=== PATIENT | female | born 1995 | race Caucasian/White ===

== ENCOUNTER → 2021-02-13 16:33 | Outpatient (BNVA) | payer OTHER, SELFPAY | PROVIDERS: Family Provider Family Medicine; Visit Provider Registered Nurse Neonatal Intensive Care | DX: J02.9 Acute pharyngitis, unspecified (principal); J02.0 Streptococcal pharyngitis | CPT/HCPCS: 87880 ==

== ENCOUNTER 2021-06-03 12:50 | Emergency (ER) | payer BC, MEDICAID, SELFPAY ==
[2021-06-03 12:52] VITALS: BP 119/77; PULSE 103; RESP 16; TEMP 36.9; O2SAT 98; BMI 33.9
--- NOTE | 2021-06-03 13:15 | ECG_ITS ---
[facility] Test Date: 2021-06-03 Pat Name: Ana Tay Department: Room: Gender: Female Tunnel Inspector: : 1995 Requested By: Roddy Negrete Order Number: [id number] Martinez MD: Ev Blackman M.D. Measurements Intervals [place] Rate: 74 P: 28 TX: 146 QRS: 33 QRSD: 95 T: 34 QT: 380 QTc: 422 Interpretive Statements SINUS RHYTHM No previous ECG available for comparison Electronically Signed On 06-03-2021 19:24:02 CDT by Ev Blackman M.D. [email or web address]
--- NOTE | 2021-06-03 13:29 | ED_ITS ---
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 The incident was witnessed by coworkers today. denies any fall or injury. After the seizure, patient has headache and neck pain. En route by rescue, the patient had a fingerstick glucose of wnl and was back to baseline. HDS without any signs of focal neurological deficits. On arrival, the patient is AAOx3, GCS of 15 and answering all questions. The patient denies any associated chest pain, shortness of breath, palpitations, or any focal pain in the arms and legs. Last time breakthrough seizure occurred in January due to medication non-compliance. Since then, patient reports taking her medicine compliantly. Patient denies new vaginal cramps, vaginal discharge, hematuria, vaginal bleeding, or any urinary symptoms. Onset: 1 hr ago Duration: x1 episode Location: home Severity: moderate Review of Systems Narrative: Constitutional: No fever, no chills. HEENT: No vision changes, +neck pain CV: No chest pain, no palpitations PULM: No productive cough, no dyspnea. GI: No abdominal pain, no N/V/D. : No Dysuria MSKEL: No muscle pain SKIN: No new rashes, no lesions. NEURO: +headache, no focal weakness. + 1 episode of seizure HEME: No visible bruises PSYCH: Normal mood PFSH ED PFSH: Medical History (Updated 06/03/21 @ 13:27 by Roddy Negrete MD) Psychiatric care Social History Smoking and tobacco status: never smoked Second hand smoke exposure: No Smoking risk assessment/counseling performed?: No Current gender identity: Female Female Reproductive History: Date of last menstrual period: 03/03/21 Physical Exam Narrative: EXAM NARRATIVE: Head: Atraumatic Eyes: PERRL, conjunctiva without injection, eyes tracking ENT: Mucous membrane moist NECK: Supple without lymphadenopathy LUNGS: LCTAB CV: RRR ABDOMEN: Soft, nontender in all quadrants, no guarding or rebound tenderness, no CVA or flank tenderness bilaterally EXTREMITY: Normal ROM SKIN: No rash or erythema NEURO: CN II-XII tested and intact. Sensation intact to sharp/dull differentiation in all extremities. Motor: Normal tone and bulk. No abnormal movements appreciated. No pronator drift. Strength tested and 5/5 in bilateral wrist flexion/extension, elbow flexion/extension, shoulder abduction, straight leg raise, knee flexion/extension, ankle dorsiflexion/plantarflexion. Patient ambulates with a steady gait. Coordination: Finger to nose and heel to ruiz testing intact bilaterally. Reflexes intact in the ankles, knees, and elbows bilaterally PSYCH: Cooperative mood and affect Course Vital Signs: Vital signs: Vital Signs Temperature 98.4 F 06/03/21 12:52 Pulse Rate 80 06/03/21 15:30 Respiratory Rate 16 06/03/21 15:30 Blood Pressure 131/82 06/03/21 15:30 Pulse Oximetry 97 06/03/21 15:30 MDM - General Adult MDM Narrative: Medical decision making narrative: [25]yo patient at 11 weeks, epilepsy on keppra and lamotrigene BIBA after an episode of seizure with unknown duration which occurred 1 hr ago. Back to baseline on arrival, AAOX3 with non-focal neuro exam. HDS. Exam revealed no focal trauma/deformity/bruises.The episode of seizure was witnessed and without any trauma/injury to the head. No immunosuppression hx and without preceding fever. No history of alcohol abuse or suspicion for toxin ingestion. Hx of prior seizure likely breakthrough seizure in the setting of medication change/non- compliance. H No lips/tongue lacerations. No visible bowel/bladder incontinence Airway protected. No drooling. Sats > 95%. Unlikely to be stroke, neurogenic syncope, acute delirium, intracranial tumor/mass, intracranial bleed, SAH/subdural hematoma/epidural hematoma, meningitis, or intracranial abscess, or from alcohol withdrawal. Workup: CBC, CMP, Magnesium, EKG, lamotrigene level, UA ED Interventions: 1g of keppra, PO challenge, serial reassessment EKG: No e/o STEMI. No evidence of Brugada?s sign, delta wave, epsilon wave, significantly prolonged QTc, or malignant arrhythmia. Lab findings: Electrolytes including K and Mg wnl. [2:34pm] On reassessment, patient back to baseline. In the ED, the patient received 1g of keppra. No other witnessed episodes of seizure while the patient was observed in the ED. Repeat neuro exam is non-focal. Patient tolerated PO in the ED and was able to ambulate without difficulties. Lab is consistent with seizure given anion gap acidosis. Unlikely to be alternative causes of seizures since the patient has no hx of immunosuppression, no recent fevers, no recent abx/CENTRAL STORES ATTENDANT shunt, no recent toxic exposure, no unilateral or focal weakness, or trauma. Patient reassures me that she will follow-up with her neurologist and her OB provider [place]. Patient declined to be seen by our neurologist here. Patient denied XR evaluation today citing . Disposition: Discharge. Patient is given instruction for follow-up with PCP and Neurology in the next 24-48 hours. Given seizure precautions including no driving, swimming, or bathing until the patient is fully evaluated by specialists. Lab Data: Labs: Lab Results 06/03/21 06/03/21 06/03/21 12:55 12:55 15:10 WBC 11.6 10^3/uL H 10 ^3/uL (4.0-10.0) RBC 4.92 10^6/uL 10^6 /uL (4.1-5.3) Hgb 14.8 g/dL g/dL (11.5-15.3) Hct 45.5 % % (37.0-47.0) MCV 92.5 fl fl (81-99) MCH 30.1 pg pg (28.0-34.0) MCHC 32.5 g/dL g/dL (30.0-36.0) RDW 12.2 % % (12.1-15.1) Plt Count 264 10^3/cmm 10^3 /cmm (130-400) MPV 10.5 fL H fL (7.4-10.4) Neut % (Auto) 73.5 % % Lymph % (Auto) 21.7 % % [place] % (Auto) 4.2 % % Eos % (Auto) 0.0 % % Baso % (Auto) 0.2 % % Neut # (Auto) 8.54 10^3/uL H 10 ^3/uL (1.8-7.7) Lymph # (Auto) 2.5 10^3/uL 10^3/ uL (0.8-4.8) [place] # (Auto) 0.5 10^3/uL 10^3/ uL (0.2-0.9) Eos # (Auto) 0.0 10^3/uL 10^3/ uL (0.0-0.8) Baso # (Auto) 0.0 10^3/uL 10^3/ uL (0.0-0.1) Nucleated RBC % (a uto) 0 % % Nucleated RBCs # 0.0 /100WBC /100W BC Sodium 136 mmol/L mmol/L (136-145) Potassium 3.9 mmol/L mmol/L (3.5-5.1) Chloride 99 mmol/L mmol/L (98-107) Carbon Dioxide 11 mmol/L L mmol/ L (22-29) Anion Gap 29.9 H (5-19) BUN 6 mg/dL mg/dL (6-20) Creatinine 0.6 mg/dL mg/dL (0.5-0.9) GFR Calculation 122.8 mL/min mL/m in (90-130) Glucose 89 mg/dL mg/dL (65-115) Calculated Osmolal ity 279 mOsm/kg L mOs m/kg (285-295) Calcium 9.7 mg/dL mg/dL (8.5-10.5) Total Bilirubin 0.3 mg/dL mg/dL (0.15-1.2) AST 16 U/L U/L (0-32) ALT 17 U/L U/L (0-33) Alkaline Phosphata se 60 IU/L IU/L (35-105) Total Protein 7.5 g/dL g/dL (6.6-8.7) Albumin 4.1 g/dL g/dL (3.5-5.2) Globulin 3.4 g/dL g/dL (1.3-4.6) Lipase 19 U/L U/L (13-60) Urine Color Yellow (Yellow) Urine Appearance Cloudy (CLEAR) Urine pH 5 (5-7) Ur Specific Gravit y 1.020 (1.005-1.030) Urine Protein Neg (Negative) Urine Glucose (UA) Norm (Normal) Urine Ketones 2+ H (Negative) Urine Blood Neg (Negative) Urine Nitrate Negative (Negative) Urine Bilirubin Neg (Negative) Urine Urobilinogen Norm mg/dL mg/dL (Negative) Ur Leukocyte Alethea ase Negative (Negative) Urine RBC Rare /hpf /hpf (0-2) Urine WBC Rare /hpf /hpf (0-5) Ur Squamous Epith Cells Rare /hpf /hpf (0-5) Amorphous Sediment Not Reportable Urine Bacteria 2+ /hpf H /hpf (NONE) Urine Mucus 1+ /hpf /hpf Discharge Plan Discharge Patient Disposition: Home Clinical Impression: Seizure Condition: Stable Prescriptions: No Action lamotrigine [Lamictal] 200 mg tablet 200 mg PO BID RF: 0 levetiracetam 750 mg tablet extended release 24 hr 1,500 mg PO QAM RF: 0 Multivitamins 28 mg iron- 800 mcg Tablet 1 tab PO DAILY RF: 0 Prozac 20 mg capsule 20 mg PO QAM RF: 0 Discharge Orders: Discharge ED (Routine); Ordered 06/03/21 Ordered By: Roddy Negrete Discharge Diet: Advance as tolerated Discharge Activity: Resume usual activity Patient Instructions: Seizures Activity Restrictions/Additional Instructions: Please follow-up with your doctor in [place] for further evaluation of your seizure. Please do not drive, swim, bathe on your own without supervision. Come back to the emergency room you have another break-up through episode of seizure. Stand Alone Forms: Work/School Release Coding Level of Care Code ED Test And Turn Up Technician for Ehsan Sherwood
[2021-06-03 13:48] LABS: Basophils % 0.2 %; Hematocrit 45.5 % (37.0-47.0); Hemoglobin 14.8 g/dL (11.5-15.3); Lymphocytes # 2.5 10^3/uL (0.8-4.8); Lymphocytes % 21.7 %; Mean Corpuscular HGB Conc 32.5 g/dL (30.0-36.0); Mean Corpuscular Hemoglobin 30.1 pg (28.0-34.0); Mean Corpuscular Volume 92.5 fl (81-99); Mean Platelet Volume 10.5 fL (7.4-10.4); Monocytes # 0.5 10^3/uL (0.2-0.9); Monocytes % 4.2 %; Neutrophils # 8.54 10^3/uL (1.8-7.7); Neutrophils % 73.5 %; Nucleated Red Blood Cells % 0 %; Platelet Count 264 10^3/cmm (130-400); Red Blood Count 4.92 10^6/uL (4.1-5.3); Red Cell Distribution Width 12.2 % (12.1-15.1); White Blood Count 11.6 10^3/uL (4.0-10.0)
[2021-06-03 13:50] VITALS: PULSE 83; PULSE 90; RESP 15; O2SAT 98
[2021-06-03 13:52] LABS: Alanine Aminotransferase 17 U/L (0-33); Albumin Level 4.1 g/dL (3.5-5.2); Alkaline Phosphatase 60 IU/L (35-105); Anion Gap 29.9 (5-19); Aspartate Amino Transferase 16 U/L (0-32); Blood Urea Nitrogen 6 mg/dL (6-20); Calcium 9.7 mg/dL (8.5-10.5); Carbon Dioxide 11 mmol/L (22-29); Chloride 99 mmol/L (98-107); Globulin 3.4 g/dL (1.3-4.6); Glomerular Filtration Rate 122.8 mL/min (90-130); Glucose 89 mg/dL (65-115); Lipase 19 U/L (13-60); Osmolality Calculated 279 mOsm/kg (285-295); Potassium 3.9 mmol/L (3.5-5.1); Sodium 136 mmol/L (136-145); Total Bilirubin 0.3 mg/dL (0.15-1.2); Total Protein 7.5 g/dL (6.6-8.7)
[2021-06-03] MEDS: sodium chloride 0.9% 1,000 ML 999 ML IV (14:13)
--- NOTE | 2021-06-03 14:14 | PC.NURSE ---
pt amb to bathroom with a steady gait unassisted to attempt to provide urine specimen. upon returning she stated that she did urinate but did not remember to catch it in the cup. pt is a&ox4. pt educated on procedure of collection again she verbalizes understanding.
[2021-06-03 14:20] VITALS: PULSE 75; RESP 18; O2SAT 99
--- NOTE | 2021-06-03 14:20 | PC.NURSE ---
while at bedside pt is in nad. pt denies any further needs.
[2021-06-03 14:30] VITALS: BP 120/65; PULSE 77; RESP 21; O2SAT 97
--- NOTE | 2021-06-03 14:53 | PC.NURSE ---
pt connected to continuous spo2, nibp, and cm per protocol.
[2021-06-03 15:30] VITALS: BP 131/82; PULSE 80; RESP 16; O2SAT 97
--- NOTE | 2021-06-03 15:56 | PC.NURSE ---
offered pt to receive the rest of ns approx 600 ml pt refused.
[2021-06-03 16:11] LABS: Add Urine Microscopic? YES; Bilirubin Urine Neg (Negative); Blood Urine Neg (Negative); Glucose Urine UA Norm (Normal); Ketones Urine 2+ (Negative); Leukocyte Esterase Urine Negative (Negative); Nitrate Urine Negative (Negative); Protein Urine Neg (Negative); Urine Appearance Cloudy (CLEAR); Urine Color Yellow (Yellow); Urobilinogen Urine Norm (Negative); pH Urine 5 (5-7)
[2021-06-03 16:12] LABS: Bacteria Urine 2+ /hpf; Mucus Urine 1+ /hpf; RBC Urine RARE /hpf (0-2); Squamous Epithelial Cell Urine RARE /hpf (0-5); WBC Urine RARE /hpf (0-5)
[2021-06-07 16:37] LABS: Lamotrigine (Lamictal) Level 2.2 mcg/mL (4.0-18.0)
== END 2021-06-03 15:54 | disposition home or self-care (01) ==
PROVIDERS: Emergency Provider Emergency Medicine
DX: R56.9 Unspecified convulsions (principal)
CPT/HCPCS: 80053; 80175; 81001; 83690; 85025; 93005; 96361; 96374; 99284; J1953; J7030

== ENCOUNTER 2021-07-24 16:54 | Outpatient (CLI) | payer BC, MEDICAID, SELFPAY ==
[2021-07-29 10:11] LABS: Levetiracetam Keppra 10.5 mcg/mL
[2021-07-29 14:02] LABS: Lamotrigine (Lamictal) Level 4.7 mcg/mL (4.0-18.0)
== END 2021-07-24 16:55 | disposition home or self-care (01) ==
LOC: LAB 16:58
PROVIDERS: Visit Provider Psychiatry & Neurology Neurology
DX: G40.309 Generalized idiopathic epilepsy and epileptic syndromes, not intractable, without status epilepticus (principal)
CPT/HCPCS: 36415; 80175; 80177

== ENCOUNTER → 2021-10-18 12:43 | Outpatient (BNVA) | payer BC, SELFPAY | PROVIDERS: Visit Provider Psychiatry & Neurology Psychiatry | DX: F41.9 Anxiety disorder, unspecified (principal); J02.0 Streptococcal pharyngitis | CPT/HCPCS: 99213 ==

== ENCOUNTER 2021-12-05 20:01 | Outpatient (CLI) | payer BC, MEDICAID, SELFPAY ==
[2021-12-05] VITALS (49 sets, daily range): BP systolic 111–161; BP diastolic 57–87; PULSE 88–129; RESP 14; O2SAT 88–99; BMI 36.6
[2021-12-05 20:55] LABS: Basophils % 0.2 %; Hematocrit 36.1 % (37.0-47.0); Hemoglobin 12.2 g/dL (11.5-15.3); Lymphocytes # 1.9 10^3/uL (0.8-4.8); Lymphocytes % 15.9 %; Mean Corpuscular HGB Conc 33.8 g/dL (30.0-36.0); Mean Corpuscular Hemoglobin 29.2 pg (28.0-34.0); Mean Corpuscular Volume 86.4 fl (81-99); Mean Platelet Volume 11.1 fL (7.4-10.4); Monocytes # 0.8 10^3/uL (0.2-0.9); Monocytes % 7.1 %; Neutrophils # 8.84 10^3/uL (1.8-7.7); Neutrophils % 75.9 %; Nucleated Red Blood Cells % 0 %; Platelet Count 251 10^3/cmm (130-400); Red Blood Count 4.18 10^6/uL (4.1-5.3); Red Cell Distribution Width 12.1 % (12.1-15.1); White Blood Count 11.6 10^3/uL (4.0-10.0)
--- NOTE | 2021-12-05 20:58 | P.HP_ITS ---
Providers/Chief Complaint Admitting Physician: Tasneem Catalan MD On-call provider since [facility] SHEARING MACHINE TENDER on-call provider (Dr. Serna) declined the patient. Chief Complaint: Seizure History of Present Illness Ana Tay is a 26 year old female G2, P1 at 37 weeks 3 days gestation who presented via EMS to labor and delivery for seizure at home. She does have a history of seizure disorder with her last known seizure about 6 months ago. She was not given any medications by EMS and she was not seizing upon presentation to the hospital. The patient is still postictal and cannot recall any events from today. Her significant other is with her but he was not present at the time. He was called by her father who was home with her during the seizure. She follows with an OB Dr. Singletary in [place] and also with a neurologist in [place]. She does recall that they increased her medication after her last seizure 6 months ago. Her blood pressure on presentation was 120/76. EMS reported BP's in the 130's (we do not have record, simply verbal report). Review of Systems General: Reports: Other (Patient is postictal so her short-term memory is c ompromised, but she denie) Const: Denies: fever(s) Eyes: Denies: eye redness or seeing flashes ENMT: Denies: throat pain, ear or mastoid pain or nasal congestion Card: Denies: chest pain or palpitations Resp: Denies: dyspnea or productive cough GI: Denies: abdominal pain, GI cramping or change in bowel habits : Denies: flank pain or dysuria Musc: Denies: joint pain or joint swelling Skin/Breast: Denies: rash Neuro: Reports: confusion and seizure-like activity Psych: Denies: mood swings Endo: Reports: polydipsia Jaret/Lymph: Denies: easy bruising or easy bleeding All/Imm: Denies: urticaria or throat swelling Medications/Allergies Home Medications Medication Instructions Recorded Confirmed Last Taken Type vit no.95-ferrous 1 tab PO DAILY 06/03/21 12/05/21 12/05/21 History fumarate 28 mg-folic acid 800 mcg tablet ( Multivitamins) fluoxetine 20 mg capsule (Prozac) 20 mg PO QAM #30 cap 03/04/22 04/21/22 04/21/22 Rx lamotrigine 200 mg tablet 350 mg PO BID tab 10/18/21 12/05/21 12/05/21 History (Lamictal) levetiracetam 750 mg 1,500 mg PO BID tab 10/18/21 12/05/21 12/05/21 History tablet,extended release 24 hr (Keppra XR) Allergies Allergy/AdvReac Type Severity Reaction Status Date / Time adhesive tape Allergy Severe breaks out Verified 12/05/21 21:16 latex Allergy Severe breaks out Verified 12/05/21 21:16 in hives PFSH Acute PFSH: Medical History (Updated 12/05/21 @ 21:14 by Tasneem Catalan MD) Psychiatric care Social History Smoking and tobacco status: never smoked Second hand smoke exposure: No Smoking risk assessment/counseling performed?: No Current gender identity: Female Female Reproductive History: Date of last menstrual period: 03/03/21 Vitals/I&O/Wt Last Vital Signs Pulse 101 H 12/05/21 20:55 BP 126/78 12/05/21 20:47 Pulse Ox 96 12/05/21 20:55 Physical Exam HENMT: HEAD & SCALP: normal to inspection Eye: COMMON NORMALS: Equal, round and reactive pupils present and EOMs intact bilaterally Chest: CHEST: Yes Symmetrical chest wall rise Resp: AUSCULTATION: clear to auscultation bilaterally, no rhonchi and no wheezes Cardio: RATE: regular rate RHYTHM: regular rhythm HEART SOUNDS: no murmurs GI: INSPECTION: Yes gravid abdomen PALPATION: Yes Soft to palpation and No Tenderness to palpation present (GI) Extremity: NARRATIVE EXTREMITY EXAM: No calf tenderness Skin: GENERAL SKIN EXAM: no pallor Data : 12/05/21 20:35 12/05/21 20:35 A&P Assessment and plan (1) with 37 weeks completed gestation: heart tones were initially tachycardic upon presentation but the infant has settled down nicely with a baseline around 150s, good accelerations, moderate variability, and no decelerations. There is uterine irritability but the patient denies feeling any contractions. Status: Acute (2) 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: I do suspect this is related to her seizure disorder and not eclampsia. Her blood pressures have been very good. Her most elevated is 129/81. We are still awaiting [facility] labs. Her seizure spontaneously resolved as EMS reported not giving her any medications -she seemed to be postictal when they arrived on scene. We do have Ativan and magnesium immediately available. Further plans will be dependent upon the patient's hospital course. update: The patient's labs resulted. Her ASt was 34, just 2 points above normal, with a normal ALT. Platelets are good, trace protein in the urine. Urine pro-Cr ratio is borderline at 0.32. Uric acid 6.1. Unfortunately Lamictal and Keppra levels are a send out lab that will take 2 to 4 days to result so we will not be doing these. I spoke with Dr. Dalton the on-call physician for [place], Dr. Singletary. And he agrees that this seems to be due to her epilepsy. She does have an OB appointment jas jennifer in [place] and she will go ahead and keep that. I advised her to notify her neurologist and possibly have her medication levels checked there tomorrow. She is feeling pretty good , denies any GARRISON or scotomata, she has no RUQ tenderness. heart tones are now 140s with moderate variability good accelerations, lots of movement. We are picking up some contractions every 2 to 6 minutes however the patient is not feeling them. Additionally she has made no cervical change from the time of admission. Current blood pressure 111/72. Status: Acute (3) Anxiety disorder, unspecified: On fluoxetine Status: Acute Attestations Medical Necessity Statement*: Seizure during , need to rule out eclampsia. Coding Level of Care Code Acute Urban Planner for [facility] Fwd Exam Detailed Diagnoses with 37 weeks completed gestation Z3A.37 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 O99.353; G40.909 Anxiety disorder, unspecified F41.9
[2021-12-05 21:10] LABS: Add Urine Microscopic? YES; Bacteria Urine TRACE /hpf; Bilirubin Urine Neg (Negative); Blood Urine Neg (Negative); Glucose Urine UA Norm (Normal); Ketones Urine 1+ (Negative); Leukocyte Esterase Urine Negative (Negative); Mucus Urine 3+ /hpf; Nitrate Urine Negative (Negative); Protein Urine Trace (Negative); RBC Urine 0-4 /hpf (0-2); Squamous Epithelial Cell Urine 0-4 /hpf (0-5); Urine Appearance Clear (CLEAR); Urine Color Yellow (Yellow); Urobilinogen Urine Norm (Negative); WBC Urine 0-4 /hpf (0-5); pH Urine 6 (5-7)
[2021-12-05 21:11] LABS: Add Urine Culture? No
[2021-12-05 21:12] LABS: Alanine Aminotransferase 7 U/L (0-33); Albumin Level 3.6 g/dL (3.5-5.2); Alkaline Phosphatase 155 IU/L (35-105); Anion Gap 20.6 (5-19); Aspartate Amino Transferase 34 U/L (0-32); Blood Urea Nitrogen 8 mg/dL (6-20); Calcium 9.1 mg/dL (8.5-10.5); Carbon Dioxide 18 mmol/L (22-29); Chloride 104 mmol/L (98-107); Globulin 2.7 g/dL (1.3-4.6); Glomerular Filtration Rate 150.3 mL/min (90-130); Glucose 84 mg/dL (65-115); Osmolality Calculated 284 mOsm/kg (285-295); Potassium 4.6 mmol/L (3.5-5.1); Sodium 138 mmol/L (136-145); Total Bilirubin 0.3 mg/dL (0.15-1.2); Total Protein 6.3 g/dL (6.6-8.7); Uric Acid 6.1 mg/dL (2.4-5.7)
[2021-12-05 21:17] LABS: Urine Creatinine 155 mg/dL (28-217)
[2021-12-05 21:19] LABS: UPRO/UCREAT Ratio 0.32 mg/mg CR; Urine Protein Random 50 mg/dL
--- NOTE | 2021-12-05 22:14 | PM.DCS ---
Discharge Providers Date of Discharge: December 05, 2021 Attending Provider at Admission: Tasneem Catalan MD Attending Provider at Discharge: Tasneem Catalan MD Diagnoses at Discharge Discharge Diagnosis (1) with 37 weeks completed gestation: Status: Acute (2) 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: Status: Acute (3) Anxiety disorder, unspecified: Status: Acute Reason for Visit Reason for Visit: Seizure Hospital Course Hospital Course Please see patient's H&P for all details. This was a very short stay, less than 4 hours. Discharge Data Studies Completed and Pending Laboratory Results WBC 11.6 10^3/uL (4.0-10.0) H 12/05/21 20:35 RBC 4.18 10^6/uL (4.1-5.3) 12/05/21 20:35 Hgb 12.2 g/dL (11.5-15.3) 12/05/21 20:35 Hct 36.1 % (37.0-47.0) L 12/05/21 20:35 MCV 86.4 fl (81-99) 12/05/21 20:35 MCH 29.2 pg (28.0-34.0) 12/05/21 20:35 MCHC 33.8 g/dL (30.0-36.0) 12/05/21 20:35 RDW 12.1 % (12.1-15.1) 12/05/21 20:35 Plt Count 251 10^3/cmm (130-400) 12/05/21 20:35 MPV 11.1 fL (7.4-10.4) H 12/05/21 20:35 Neut % (Auto) 75.9 % 12/05/21 20:35 Lymph % (Auto) 15.9 % 12/05/21 20:35 [place] % (Auto) 7.1 % 12/05/21 20:35 Eos % (Auto) 0.0 % 12/05/21 20:35 Baso % (Auto) 0.2 % 12/05/21 20:35 Neut # (Auto) 8.84 10^3/uL (1.8-7.7) H 12/05/21 20:35 Lymph # (Auto) 1.9 10^3/uL (0.8-4.8) 12/05/21 20:35 [place] # (Auto) 0.8 10^3/uL (0.2-0.9) 12/05/21 20:35 Eos # (Auto) 0.0 10^3/uL (0.0-0.8) 12/05/21 20:35 Baso # (Auto) 0.0 10^3/uL (0.0-0.1) 12/05/21 20:35 Nucleated RBC % (auto) 0 % 12/05/21 20:35 Nucleated RBCs # 0.0 /100WBC 12/05/21 20:35 Sodium 138 mmol/L (136-145) 12/05/21 20:35 Potassium 4.6 mmol/L (3.5-5.1) 12/05/21 20:35 Chloride 104 mmol/L (98-107) 12/05/21 20:35 Carbon Dioxide 18 mmol/L (22-29) L 12/05/21 20:35 Anion Gap 20.6 (5-19) H 12/05/21 20:35 BUN 8 mg/dL (6-20) 12/05/21 20:35 Creatinine 0.5 mg/dL (0.5-0.9) 12/05/21 20:35 GFR Calculation 150.3 mL/min (90-130) H 12/05/21 20:35 Glucose 84 mg/dL (65-115) 12/05/21 20:35 Calculated Osmolality 284 mOsm/kg (285-295) L 12/05/21 20:35 Uric Acid 6.1 mg/dL (2.4-5.7) H 12/05/21 20:35 Calcium 9.1 mg/dL (8.5-10.5) 12/05/21 20:35 Total Bilirubin 0.3 mg/dL (0.15-1.2) 12/05/21 20:35 AST 34 U/L (0-32) H 12/05/21 20:35 ALT 7 U/L (0-33) 12/05/21 20:35 Alkaline Phosphatase 155 IU/L (35-105) H 12/05/21 20:35 Total Protein 6.3 g/dL (6.6-8.7) L 12/05/21 20:35 Albumin 3.6 g/dL (3.5-5.2) 12/05/21 20:35 Globulin 2.7 g/dL (1.3-4.6) 12/05/21 20:35 Urine Color Yellow (Yellow) 12/05/21 20:35 Urine Appearance Clear (CLEAR) 12/05/21 20:35 Urine pH 6 (5-7) 12/05/21 20:35 Ur Specific [place] 1.020 (1.005-1.030) 12/05/21 20:35 Urine Protein Trace (Negative) 12/05/21 20:35 Urine Glucose (UA) Norm (Normal) 12/05/21 20:35 Urine Ketones 1+ (Negative) H 12/05/21 20:35 Urine Blood Neg (Negative) 12/05/21 20:35 Urine Nitrate Negative (Negative) 12/05/21 20:35 Urine Bilirubin Neg (Negative) 12/05/21 20:35 Urine Urobilinogen Norm mg/dL (Negative) 12/05/21 20:35 Ur Leukocyte Esterase Negative (Negative) 12/05/21 20:35 Urine RBC 0-4 /hpf (0-2) H 12/05/21 20:35 Urine WBC 0-4 /hpf (0-5) H 12/05/21 20:35 Ur Squamous Epith Cells 0-4 /hpf (0-5) H 12/05/21 20:35 Amorphous Sediment Not Reportable 12/05/21 20:35 Urine Bacteria Trace /hpf (NONE) 12/05/21 20:35 Urine Mucus 3+ /hpf 12/05/21 20:35 U Random Total Protein 50 mg/dL 12/05/21 20:35 Urine Creatinine 155 mg/dL (28-217) 12/05/21 20:35 Protein/Creatinin Ratio 0.32 mg/mg CR 12/05/21 20:35 Vitals Last Vital Signs Pulse 95 12/05/21 21:55 BP 111/72 12/05/21 21:47 Pulse Ox 97 12/05/21 21:55 Discharge Plan Discharge Patient Disposition: Home Prescriptions: No Action Prozac 20 mg capsule 20 mg PO QAM Qty: 30 2RF lamotrigine [Lamictal] 200 mg tablet 350 mg PO BID 0RF PNV cmb#95-ferrous fumarate-FA [ Multivitamins] 28 mg iron- 800 mcg Tablet 1 tab PO DAILY 0RF levetiracetam [Keppra XR] 750 mg tablet extended release 24 hr 1,500 mg PO BID 0RF Discharge Orders: Discharge Order (Routine); Ordered 12/05/21 Ordered By: Tasneem Catalan Diet: Usual diet Activity: Resume usual activity Patient Instructions: Epilepsy (DC), Preeclampsia During (DC), Early Labor Signs (DC), OB Undelivered Discharge Activity Restrictions/Additional Instructions: Keep her OB appt tomorrow. Notify her Neurologist tomorrow of breakthrough seizure. Discharge Attestations Time Spent in Discharge Care*: greater than 30 min Quality Metrics Clinical Quality Measures [ No reported AMI, CVA or VTE this stay] Coding Level of Care Code Acute Chg FW DC note Diagnoses with 37 weeks completed gestation Z3A.37 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 O99.353; G40.909 Anxiety disorder, unspecified F41.9
--- NOTE | 2021-12-05 22:33 | PC.NURSE ---
Patient had signed discharge paperwork but was changing to leave when the call light went off in patient room. RN entered the room and found patient seizing supported by . Rapid Response immediately called, O2 administered via non-rebreather, FHTs obtained, VS obtained, IV access obtained 18G in Left AC and labs collected. ENDOCRINOLOGY NURSE arrives and orders received for KEPPRA 1GM IV, BMP, Lactic Acid and Magnesium Level. Dr Catalan updated on patient status. Received orders to keep patient in OB department for observation.
[2021-12-05 23:11] LABS: Anion Gap 30.6 (5-19); Blood Urea Nitrogen 9 mg/dL (6-20); Calcium 10.4 mg/dL (8.5-10.5); Carbon Dioxide 12 mmol/L (22-29); Chloride 102 mmol/L (98-107); Glomerular Filtration Rate 121.8 mL/min (90-130); Glucose 90 mg/dL (65-115); Magnesium 2.2 mg/dL (1.7-2.3); Osmolality Calculated 290 mOsm/kg (285-295); Potassium 3.6 mmol/L (3.5-5.1); Sodium 141 mmol/L (136-145)
[2021-12-05 23:13] LABS: Lactate (Lactic Acid level) 14.1 mmol/L (0.5-2.2)
--- NOTE | 2021-12-05 23:32 | PM.CONSULT ---
Providers/Reason For Consult Consulting Physician/Specialty*: Hospitalist Reason for Consult*: Rapid response breakthrough seizure Attending Physician: Tasneem Catalan MD History of Present Illness History of Present Illness Ana Tay is a 26 year old female who carries diagnosis of seizure, last seizure was roughly 6 months ago, takes lamotrigine and Keppra twice a day, was being evaluated in OB department today for a breakthrough seizures in her third trimester, when EMS brought her in she did not require any Ativan, she spontaneously recovered with mild postictal changes. Please note at that time her blood sugar was around 80s At night rapid response was called for another breakthrough seizure while she was being discharged after her ultrasound in OB department. I evaluated the patient at the bedside OB room 3 Patient was laying supine in her bed, was not verbally redirectable initially, she kept staring towards the ceiling, this time POC blood glucose was 90mg/dl after about 2 minutes she was able to communicate, recovered spontaneously, she was anxious & slightly confused however able to tell me name of her , she was oriented to time and person, her blood pressure was 111/76 mmHg, afebrile, no active emesis, she was able to protect her airways, was at the bedside I requested magnesium level and gave her 1 g of Keppra Requested nurse to keep an eye on her blood sugar and give her a sip of juice and keep her on clear liquids overnight She will stay in OB department for now As per the she has not taken her evening antiepileptics. As per my discussion with Dr. Catalan she has not been diagnosed with eclampsia. She has her neurologist in [place]. I spoke with Dr. Catalan to give an update at the end She will be observed overnight in OB department Keppra administered Monitor POC glucose Mag sulfate on standby after checking mag level Review of Systems Const: Denies: fever(s) Eyes: Denies: change in vision ENMT: Denies: throat pain Medications/Allergies Home Medications Medication Instructions Recorded Confirmed Last Taken Type vit no.95-ferrous 1 tab PO DAILY 06/03/21 12/05/21 12/05/21 History fumarate 28 mg-folic acid 800 mcg tablet ( Multivitamins) fluoxetine 20 mg capsule (Prozac) 20 mg PO QAM #30 cap 10/18/21 12/05/21 12/05/21 Rx lamotrigine 200 mg tablet 350 mg PO BID tab 10/18/21 12/05/21 12/05/21 History (Lamictal) levetiracetam 750 mg 1,500 mg PO BID tab 10/18/21 12/05/21 12/05/21 History tablet,extended release 24 hr (Keppra XR) Allergies Allergy/AdvReac Type Severity Reaction Status Date / Time adhesive tape Allergy Severe breaks out Verified 12/05/21 21:16 latex Allergy Severe breaks out Verified 12/05/21 21:16 in hives PFSH Acute PFSH: Medical History Psychiatric care Social History Smoking and tobacco status: never smoked Second hand smoke exposure: No Smoking risk assessment/counseling performed?: No Current gender identity: Female Female Reproductive History: Date of last menstrual period: 03/03/21 Vitals/I&O/Wt Last Vital Signs Pulse 99 12/05/21 23:31 BP 143/74 12/05/21 23:31 Pulse Ox 94 12/05/21 23:27 Physical Exam Narrative: Young female EOMI, PERRLA Nonfocal neuro exam Post ictal Able to move her extremities is at the bedside No active chest pain or abdominal pain Saturating well on nonrebreather mask Slightly anxious appearing Verbally redirectable Not in any active distress Abdomen is soft to palpate, gravid abdomen Data : 12/05/21 20:35 12/05/21 22:35 A&P Assessment and plan (1) 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: Status: Acute (2) with 37 weeks completed gestation: Status: Acute Plan Epilepsy in third trimester Rule out eclampsia My concern is related to hypoglycemic triggered breakthrough seizures 24-hour urine analysis Check mag level Mag sulfate on standby at Gave 1 g of Keppra Antiepileptic drug level will take 48 to 72 hours at least, as it is a send out sample Her uric acid is high, Blood pressure is slightly trending up 143/74 mmHg Her breakthrough seizure could have been triggered due to hypoglycemic levels, I have asked nurse to give her juice keep her clear liquid for now in case she experiences recurrent breakthrough seizures overnight Continue her antiepileptics Close monitoring and OB department, no acute indication for delivery heart tone monitoring as per OB Full code DVT prophylaxis as per OB Lactic acid is 14.1 related to seizure activity AST 34, ALT 7 Alk phosphatase 155 Lamictal and Keppra are relatively safer during however therapeutic level in bloodstream should be monitored Consult Attestations Medical Necessity Statement: As per OB Time Spent in Patient Care: 40mins Coding Level of Care Code Acute Networking Specialist for Chg Fwd Diagnoses 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
[2021-12-06] VITALS (161 sets, daily range): BP systolic 97–133; BP diastolic 52–81; PULSE 82–132; O2SAT 92–100
[2021-12-06 01:25] LABS: Glucose Point of Care 135 mg/dL (70-110)
[2021-12-06] MEDS: potassium chloride ER 10 mEq Tablet 40 MEQ PO (01:36)
[2021-12-06 04:13] LABS: Glucose Point of Care 86 mg/dL (70-110)
[2021-12-06 04:41] LABS: Alanine Aminotransferase 6 U/L (0-33); Albumin Level 3.3 g/dL (3.5-5.2); Alkaline Phosphatase 152 IU/L (35-105); Aspartate Amino Transferase 15 U/L (0-32); Blood Urea Nitrogen 9 mg/dL (6-20); Calcium 8.9 mg/dL (8.5-10.5); Carbon Dioxide 19 mmol/L (22-29); Chloride 101 mmol/L (98-107); Globulin 3.5 g/dL (1.3-4.6); Glomerular Filtration Rate 194.5 mL/min (90-130); Glucose 89 mg/dL (65-115); Lactate (Lactic Acid level) 1.2 mmol/L (0.5-2.2); Osmolality Calculated 276 mOsm/kg (285-295); Sodium 134 mmol/L (136-145); Total Bilirubin 0.5 mg/dL (0.15-1.2); Total Protein 6.8 g/dL (6.6-8.7)
--- NOTE | 2021-12-06 05:03 | PC.NURSE ---
24 hour Urine collection started 12/06/21 at 0000
[2021-12-06 08:11] LABS: Glucose Point of Care 106 mg/dL (70-110)
[2021-12-06 08:17] LABS: Basophils % 0.2 %; Hematocrit 40.5 % (37.0-47.0); Hemoglobin 12.2 g/dL (11.5-15.3); Lymphocytes # 2.1 10^3/uL (0.8-4.8); Lymphocytes % 16.2 %; Mean Corpuscular HGB Conc 30.1 g/dL (30.0-36.0); Mean Corpuscular Hemoglobin 29.2 pg (28.0-34.0); Mean Corpuscular Volume 96.9 fl (81-99); Mean Platelet Volume 11.1 fL (7.4-10.4); Monocytes # 0.8 10^3/uL (0.2-0.9); Monocytes % 6.2 %; Neutrophils # 10.13 10^3/uL (1.8-7.7); Nucleated Red Blood Cells % 0 %; Platelet Count 217 10^3/cmm (130-400); Red Blood Count 4.18 10^6/uL (4.1-5.3); Red Cell Distribution Width 12.1 % (12.1-15.1); White Blood Count 13.1 10^3/uL (4.0-10.0)
[2021-12-06 08:37] LABS: Urine Creatinine 212 mg/dL (28-217)
[2021-12-06 08:38] LABS: UPRO/UCREAT Ratio 0.16 mg/mg CR; Urine Protein Random 33 mg/dL
[2021-12-06 08:39] LABS: Slide Review Slide Review Perform
[2021-12-06 08:43] LABS: Alanine Aminotransferase 7 U/L (0-33); Albumin Level 3.1 g/dL (3.5-5.2); Alkaline Phosphatase 147 IU/L (35-105); Blood Urea Nitrogen 7 mg/dL (6-20); Calcium 9.4 mg/dL (8.5-10.5); Carbon Dioxide 15 mmol/L (22-29); Chloride 102 mmol/L (98-107); Globulin 2.9 g/dL (1.3-4.6); Glomerular Filtration Rate 194.5 mL/min (90-130); Glucose 85 mg/dL (65-115); Osmolality Calculated 271 mOsm/kg (285-295); Sodium 132 mmol/L (136-145); Thyroid Stimulating Hormone 1.65 uIU/mL (0.27-4.20); Total Bilirubin 0.5 mg/dL (0.15-1.2); Uric Acid 6.5 mg/dL (2.4-5.7)
[2021-12-06 08:44] LABS: Anion Gap 19.5 (5-19); Aspartate Amino Transferase 19 U/L (0-32); Potassium 4.5 mmol/L (3.5-5.1)
[2021-12-06] MEDS: prenatal vitamin Capsule 1 CAP PO (08:59)
[2021-12-06] MEDS: LEVETIRACETAM 1500 MG 1500 EACH PO (08:59)
[2021-12-06] MEDS: lamoTRIgine 100 mg Tablet 350 MG PO (09:00)
[2021-12-06 09:31] LABS: Estmated Average Glucose 94; Hemoglobin A1C 4.9 % (4.0-6.0)
--- NOTE | 2021-12-06 10:08 | P.PN_ITS ---
Subjective Subjective: Patient was seen this morning, family is at bedside, she tells me that this she is G2, P2, during her first she did have 1 episode of seizure, no history of preeclampsia, no issues with her blood pressure, issues of blood sugar, she sees a neurologist in [place], no recent changes to her medication, she has not had a breakthrough seizure in over 6 months, no nausea, no vomiting, no lightheadedness, no dysuria, her GBS is negative through her primary care, no dysuria, no hematuria, no cough, Vitals/I&O/Wt Last Vital Signs Pulse 103 H 12/06/21 10:04 Resp 14 12/05/21 20:39 BP 117/63 12/06/21 08:06 Pulse Ox 97 12/06/21 10:04 12/05/21 12/06/21 12/06/21 22:59 06:59 14:59 Output Total 200 / 200 Balance -200 / -200 Weight last 48 hrs Weight 102.965 kg Physical Exam Const: COMMON NORMALS: no acute distress and patient oriented x3 Resp: COMMON NORMALS: normal respiratory effort, No retractions, No use of accessory muscles and clear to auscultation bilaterally AUSCULTATION: clear to auscultation bilaterally Cardio: COMMON NORMALS: regular rate, regular rhythm, S1 normal heart sound present and S2 normal heart sound present RATE: regular rate RHYTHM: regular rhythm HEART SOUNDS: S1 normal heart sound present and S2 normal heart sound present GI: COMMON NORMALS: Normal to inspection, nondistended, normoactive bowel sounds present, Soft to palpation and non-tender PALPATION: Yes Soft to palpation OTHER: Gravid abdomen Extremity: COMMON NORMALS: no pedal edema Neuro: COMMON NORMALS: patient oriented x3 Psych: COMMON NORMALS: mental status grossly normal Data : 12/06/21 08:01 12/06/21 08:01 A&P Assessment and plan (1) 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: Status: Acute (2) with 37 weeks completed gestation: Status: Acute Plan Epilepsy in third trimester Repeat preeclampsia labs ordered Blood sugars have resolved, last 08/17/2008, eating and drinking without any issue 24-hour urine analysis Mag level within normal limits Mag sulfate on standby at Status post 1 g Keppra Antiepileptic drug level will take 48 to 72 hours at least, as it is a send out sample Her uric acid is high, monitor Last blood pressure 117/63 Her breakthrough seizure could have been triggered due to hypoglycemic levels, currently on clears, advance as tolerated Continue her antiepileptics Close monitoring and OB department, no acute indication for delivery heart tone monitoring as per OB Full code DVT prophylaxis as per OB Lactic acid is 14.1 related to seizure activity, which has resolved AST 119, ALT 7 Alk phosphatase 147 Lamictal and Keppra are relatively safer during however therapeutic level in bloodstream should be monitored Attestations Medical Necessity Statement*: Patient requires hospitalization for epilepsy, breakthrough seizures Coding Level of Care Code Acute Keypunch Operators Supervisor for Chg Fwd Diagnoses 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
--- NOTE | 2021-12-06 11:11 | PM.DCS ---
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 The patient has a known seizure disorder for which she takes both Lamictal and Keppra Xr. She follows with neurology in [place]. She was evaluated and Eclampsia was ruled out. Discharge orders had already been written when the patient had a second seizure. Rapid response team was called and hospitalist Dr. Connelly was the responding physician. Due to the events of her first seizure the patient had missed her evening doses of medication. She was given a 1 g IV of Keppra and kept overnight for observation. She did have 1 blood pressure that was elevated around 160/91 immediately post ictal. All her subsequent blood pressures have been normal with the highest being 133/78. Her labs were repeated this morning and her platelets, AST, ALT were within normal limits. Her protein creatinine ratio was 0.16. She had an episode of emesis this morning but has otherwise been tolerating clears. She says that vomiting is not unusual for her after a seizure. She feels like she is at her baseline. She was given a bolus of 1 L LR and 4mg zofran. She was discharged home in stable condition. I made a call to her neurologist Dr. Martinez, who was in clinic seeing patients and has not yet been able to return my call. Again I believe this is simply related to her seizure disorder as she has no other signs or symptoms of eclampsia. Physical Exam Narrative: FHT 130, moderate variability, good accels, no decels, audible and palpable movement. Const: GENERAL APPEARANCE: cooperative, comfortable and well developed HENMT: HEAD & SCALP: normal to inspection Eye: GENERAL EYE: appearance normal, both eyes and all related structures Chest: CHEST: Yes Symmetrical chest wall rise Resp: COMMON NORMALS: clear to auscultation bilaterally AUSCULTATION: clear to auscultation bilaterally Cardio: COMMON NORMALS: regular rate and regular rhythm RATE: regular rate RHYTHM: regular rhythm GI: COMMON NORMALS: Soft to palpation (Gravid) PALPATION: Yes Soft to palpation (Gravid) Extremity: NARRATIVE EXTREMITY EXAM: No edema, no calf tenderness Discharge Data Studies Completed and Pending Pending at discharge Category Date Time Status KEPPRA Level [Levetiracetam Keppra] Routine Lab 12/05/21 04:10 Received Lamotrigine (Lamictal) Level Routine Lab 12/05/21 04:10 Received Laboratory Results WBC 13.1 10^3/uL (4.0-10.0) H 12/06/21 08:01 RBC 4.18 10^6/uL (4.1-5.3) 12/06/21 08:01 Hgb 12.2 g/dL (11.5-15.3) 12/06/21 08:01 Hct 40.5 % (37.0-47.0) 12/06/21 08:01 MCV 96.9 fl (81-99) D 12/06/21 08:01 MCH 29.2 pg (28.0-34.0) 12/06/21 08:01 MCHC 30.1 g/dL (30.0-36.0) D 12/06/21 08:01 RDW 12.1 % (12.1-15.1) 12/06/21 08:01 Plt Count 217 10^3/cmm (130-400) 12/06/21 08:01 MPV 11.1 fL (7.4-10.4) H 12/06/21 08:01 Neut % (Auto) 77.0 % 12/06/21 08:01 Lymph % (Auto) 16.2 % 12/06/21 08:01 Brooks % (Auto) 6.2 % 12/06/21 08:01 Eos % (Auto) 0.0 % 12/06/21 08:01 Baso % (Auto) 0.2 % 12/06/21 08:01 Neut # (Auto) 10.13 10^3/uL (1.8-7.7) H 12/06/21 08:01 Lymph # (Auto) 2.1 10^3/uL (0.8-4.8) 12/06/21 08:01 Brooks # (Auto) 0.8 10^3/uL (0.2-0.9) 12/06/21 08:01 Eos # (Auto) 0.0 10^3/uL (0.0-0.8) 12/06/21 08:01 Baso # (Auto) 0.0 10^3/uL (0.0-0.1) 12/06/21 08:01 Nucleated RBC % (auto) 0 % 12/06/21 08:01 Nucleated RBCs # 0.0 /100WBC 12/06/21 08:01 Sodium 132 mmol/L (136-145) L 12/06/21 08:01 Potassium 4.5 mmol/L (3.5-5.1) 12/06/21 08:01 Chloride 102 mmol/L (98-107) 12/06/21 08:01 Carbon Dioxide 15 mmol/L (22-29) L 12/06/21 08:01 Anion Gap 19.5 (5-19) H 12/06/21 08:01 BUN 7 mg/dL (6-20) 12/06/21 08:01 Creatinine 0.4 mg/dL (0.5-0.9) L 12/06/21 08:01 GFR Calculation 194.5 mL/min (90-130) H 12/06/21 08:01 Glucose 85 mg/dL (65-115) 12/06/21 08:01 POC Glucose 106 mg/dL (70-110) 12/06/21 08:04 Estimat Average Glucose 94 12/05/21 20:35 Hemoglobin A1c 4.9 % (4.0-6.0) 12/05/21 20:35 Calculated Osmolality 271 mOsm/kg (285-295) L 12/06/21 08:01 Lactate 1.2 mmol/L (0.5-2.2) 12/06/21 04:10 Uric Acid 6.5 mg/dL (2.4-5.7) H 12/06/21 08:01 Calcium 9.4 mg/dL (8.5-10.5) 12/06/21 08:01 Magnesium 2.0 mg/dL (1.7-2.3) 12/06/21 04:10 Total Bilirubin 0.5 mg/dL (0.15-1.2) 12/06/21 08:01 AST 19 U/L (0-32) 12/06/21 08:01 ALT 7 U/L (0-33) 12/06/21 08:01 Alkaline Phosphatase 147 IU/L (35-105) H 12/06/21 08:01 Total Protein 6.0 g/dL (6.6-8.7) L 12/06/21 08:01 Albumin 3.1 g/dL (3.5-5.2) L 12/06/21 08:01 Globulin 2.9 g/dL (1.3-4.6) 12/06/21 08:01 TSH 1.65 uIU/mL (0.27-4.20) 12/06/21 08:01 Urine Color Yellow (Yellow) 12/05/21 20:35 Urine Appearance Clear (CLEAR) 12/05/21 20:35 Urine pH 6 (5-7) 12/05/21 20:35 Ur Specific Tabiona 1.020 (1.005-1.030) 12/05/21 20:35 Urine Protein Trace (Negative) 12/05/21 20:35 Urine Glucose (UA) Norm (Normal) 12/05/21 20:35 Urine Ketones 1+ (Negative) H 12/05/21 20:35 Urine Blood Neg (Negative) 12/05/21 20:35 Urine Nitrate Negative (Negative) 12/05/21 20:35 Urine Bilirubin Neg (Negative) 12/05/21 20:35 Urine Urobilinogen Norm mg/dL (Negative) 12/05/21 20:35 Ur Leukocyte Esterase Negative (Negative) 12/05/21 20:35 Urine RBC 0-4 /hpf (0-2) H 12/05/21 20:35 Urine WBC 0-4 /hpf (0-5) H 12/05/21 20:35 Ur Squamous Epith Cells 0-4 /hpf (0-5) H 12/05/21 20:35 Amorphous Sediment Not Reportable 12/05/21 20:35 Urine Bacteria Trace /hpf (NONE) 12/05/21 20:35 Urine Mucus 3+ /hpf 12/05/21 20:35 U Random Total Protein 33 mg/dL 12/06/21 07:50 Urine Creatinine 212 mg/dL (28-217) 12/06/21 07:50 Protein/Creatinin Ratio 0.16 mg/mg CR 12/06/21 07:50 Vitals Last Vital Signs Pulse 121 H 12/06/21 11:04 Resp 14 12/05/21 20:39 BP 133/78 12/06/21 10:10 Pulse Ox 95 12/06/21 11:04 Discharge Plan Discharge Condition: Stable Prescriptions: Continued Prozac 20 mg capsule 20 mg PO QAM Qty: 30 2RF lamotrigine [Lamictal] 200 mg tablet 350 mg PO BID 0RF PNV cmb#95-ferrous fumarate-FA [ Multivitamins] 28 mg iron- 800 mcg Tablet 1 tab PO DAILY 0RF levetiracetam [Keppra XR] 750 mg tablet extended release 24 hr 1,500 mg PO BID 0RF Referrals: Maria E Singletary MD [Referring] - (Keep previously scheduled OB appointments) Discharge Diet: Usual diet Discharge Activity: Resume usual activity Patient Instructions: Epilepsy (DC), Preeclampsia During (DC), Early Labor Signs (DC), OB Undelivered Discharge Activity Restrictions/Additional Instructions: Notify her Neurologist of breakthrough seizure. Discharge Attestations Time Spent in Discharge Care*: greater than 30 min Quality Metrics Clinical Quality Measures [ No reported AMI, CVA or VTE this stay] Coding Level of Care Code Acute Chg FW DC note Diagnoses 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
[2021-12-06] MEDS: ondansetron 2 mg/ML SDV 2 mL 4 MG IVP (11:14)
[2021-12-06] MEDS: lactated ringers 1,000 ML 999 ML IV (11:14)
[2021-12-09 12:07] LABS: Levetiracetam Keppra 10.6 mcg/mL
[2021-12-09 13:28] LABS: Lamotrigine (Lamictal) Level 3.7 mcg/mL (4.0-18.0)
== END 2021-12-06 12:34 | disposition home or self-care (01) ==
LOC: OPOB 20:02 → OBGYN 20:02 → OPOB 12-06 08:12 → OBGYN 12-06 10:54
PROVIDERS: Family Medicine; Internal Medicine; Visit Provider Family Medicine
DX: O99.353 Diseases of the nervous system complicating pregnancy, third trimester (principal); Z3A.37 37 weeks gestation of pregnancy; G40.909 Epilepsy, unspecified, not intractable, without status epilepticus; F41.9 Anxiety disorder, unspecified
CPT/HCPCS: 36415; 36416; 59025; 80048; 80053; 80175; 80177; 81001; 82570; 82962; 83036; 83605; 83735; 84156; 84443; 84550; 85025; 99211; J1953; J2405

== ENCOUNTER 2022-01-06 14:36 | Outpatient (CLI) | payer BC, MEDICAID, SELFPAY ==
[2022-01-09 12:58] LABS: Lamotrigine (Lamictal) Level 18.4 mcg/mL (4.0-18.0)
== END 2022-01-06 14:37 | disposition home or self-care (01) ==
PROVIDERS: Visit Provider Psychiatry & Neurology Neurology
DX: G40.309 Generalized idiopathic epilepsy and epileptic syndromes, not intractable, without status epilepticus (principal)
CPT/HCPCS: 80175; 80177

== ENCOUNTER 2023-01-16 13:19 | Outpatient (CLI) | payer BC, MEDICAID, SELFPAY ==
[2023-01-17 08:24] LABS: Levetiracetam Immunoassy 40.1 mcg/mL (6.0-46.0)
[2023-01-22 18:55] LABS: Lamotrigine (Lamictal) Level 15.4 mcg/mL (2.5-15.0)
== END 2023-01-16 13:20 | disposition home or self-care (01) ==
PROVIDERS: Visit Provider Psychiatry & Neurology Neurology
DX: G40.309 Generalized idiopathic epilepsy and epileptic syndromes, not intractable, without status epilepticus (principal)
CPT/HCPCS: 80175; 80177

== ENCOUNTER 2023-04-07 08:54 | Outpatient (CLI) | payer BC, MEDICAID, SELFPAY ==
[2023-04-07 09:34] LABS: Basophils % 0.2 %; Hematocrit 40.2 % (37.0-47.0); Hemoglobin 13.3 g/dL (11.5-15.3); Lymphocytes # 2.2 10^3/uL (0.8-4.8); Mean Corpuscular HGB Conc 33.1 g/dL (30.0-36.0); Mean Corpuscular Hemoglobin 29.8 pg (28.0-34.0); Mean Corpuscular Volume 89.9 fl (81-99); Mean Platelet Volume 10.2 fL (7.4-10.4); Monocytes # 0.4 10^3/uL (0.2-0.9); Monocytes % 6.2 %; Neutrophils # 4.02 10^3/uL (1.8-7.7); Neutrophils % 60.3 %; Nucleated Red Blood Cells % 0 %; Platelet Count 211 10^3/cmm (130-400); Red Blood Count 4.47 10^6/uL (4.1-5.3); Red Cell Distribution Width 12.5 % (12.1-15.1); White Blood Count 6.7 10^3/uL (4.0-10.0)
[2023-04-07 10:07] LABS: Alanine Aminotransferase 16 U/L (0-33); Albumin Level 4.3 g/dL (3.5-5.2); Alkaline Phosphatase 64 U/L (35-105); Anion Gap 12.2 (5-19); Aspartate Amino Transferase 14 U/L (0-32); Blood Urea Nitrogen 12 mg/dL (6-20); Calcium 9.2 mg/dL (8.5-10.5); Carbon Dioxide 25 mmol/L (22-29); Chloride 106 mmol/L (98-107); Free T4 Free Thyroxine 1.27 ng/dL (0.82-1.77); Globulin 2.5 g/dL (1.3-4.6); Glomerular Filtration Rate 120.8 mL/min (90-130); Glucose 86 mg/dL (65-115); Magnesium 1.9 mg/dL (1.7-2.3); Osmolality Calculated 287 mOsm/kg (285-295); Potassium 4.2 mmol/L (3.5-5.1); Sodium 139 mmol/L (136-145); T3 Free 3.8 PG/ML (2.0-4.4); Thyroid Stimulating Hormone 2.12 uIU/mL (0.27-4.20); Total Bilirubin 0.4 mg/dL (0.15-1.2); Total Protein 6.8 g/dL (6.6-8.7)
[2023-04-07 10:15] LABS: Folate Level 19.3 ng/mL (4.8-37.3)
[2023-04-07 10:52] LABS: 25 Hydroxy Vitamin D 23 ng/mL (30-100); Vitamin B12 352 pg/mL (232-1245)
[2023-04-08 08:53] LABS: Levetiracetam Immunoassy 24.6 mcg/mL (6.0-46.0)
[2023-04-11 05:09] LABS: Methylmalonic Acid 117 nmol/L (87-318)
== END 2023-04-07 08:55 | disposition home or self-care (01) ==
LOC: RAD 08:56
PROVIDERS: PCP Psychiatry & Neurology Neurology; Visit Provider Psychiatry & Neurology Neurology
DX: G40.419 Other generalized epilepsy and epileptic syndromes, intractable, without status epilepticus (principal)
CPT/HCPCS: 36415; 80053; 80177; 82306; 82607; 82746; 83735; 83921; 84439; 84443; 84481; 85025

== ENCOUNTER 2023-04-30 07:45 | Outpatient (CLI) | payer BC, MEDICAID, SELFPAY ==
[2023-04-30] MEDS: gadobenate dimeglumine 20 mL vial IV (08:41)
--- NOTE | 2023-04-30 09:00 | MR_ITS ---
WS: [id number] MRI HEAD WITH CONTRAST TECHNIQUE: Sagittal T1, T2 axial, T2 axial FLAIR, axial susceptibility weighted imaging, axial diffus ion weighted images, and coronal T2 images were obtained. Pre and post-T1 axial and post T1 coronal i mages. ADC and FSPGR images. High-resolution seizure protocol. CLINICAL INFORMATION: G40.419 - Other generalized epilepsy and epileptic syndro... COMPARISON: None. FINDINGS: No evidence of restricted diffusion to suggest acute ischemia. Ventricular system and basilar cistern s are patent. Normal posterior fossa. Normal vascular flow voids at the skull base. No extra-axial fl uid collections. Paranasal sinuses are well aerated. Fluid within the RIGHT mastoid air cells. Normal posterior nasopharynx. A few T2 hyperintense periventricular foci supratentorial white matter nonspecific in a patient of th is age but can be seen with hypertension, diabetes, collagen vascular disease, and migraine headaches . No significant parenchymal volume loss. No hemosiderin on susceptibility-weighted images. Normal optic chiasm and pituitary infundibulum. Foc us of T2 hyperintensity within the RIGHT anterior temporal lobe measuring 7 mm. No associated enhance ment. No significant atrophy of the mesial temporal lobes or hippocampal formations. Proximal 7th and 8th cranial nerves are normal in appearance. Normal trigeminal nerve entry zones.No abnormal gadolinium enhancement. Normal dural venous sinuses. IMPRESSION: 1. No evidence of restricted diffusion to suggest acute ischemia. 2. A few small foci of T2 hyperintensity in the periventricular white matter nonspecific in a patien t of this age but can be seen with hypertension, diabetes, collagen vascular disease, and migraine he adaches. 3. Focal T2 hyperintense lesion measuring 7 mm in the RIGHT anterior temporal lobe. No abnormal gado linium enhancement. This is likely due to prior infectious, inflammatory, or ischemic etiologies. Dem yelination is an additional less likely consideration 4. Temporal lobes and hippocampal formations are otherwise normal in appearance. No significant atro phy. 5. No abnormal gadolinium enhancement. 6. RIGHT mastoid fluid.
== END 2023-04-30 07:46 | disposition home or self-care (01) ==
PROVIDERS: PCP Psychiatry & Neurology Neurology; Visit Provider Psychiatry & Neurology Neurology
DX: G40.419 Other generalized epilepsy and epileptic syndromes, intractable, without status epilepticus (principal)
CPT/HCPCS: 70553; A9577

== ENCOUNTER → 2023-09-24 11:02 | Outpatient (BNVA) | payer BC, MEDICAID, SELFPAY | PROVIDERS: PCP Psychiatry & Neurology Neurology; Visit Provider Psychiatry & Neurology Neurology | DX: G40.419 Other generalized epilepsy and epileptic syndromes, intractable, without status epilepticus (principal); G40.A19 Absence epileptic syndrome, intractable, without status epilepticus | CPT/HCPCS: 36415; 80175 ==

== ENCOUNTER 2023-12-04 11:57 | Outpatient (CLI) | payer BC, MEDICAID, SELFPAY ==
[2023-12-09 09:24] LABS: Lamotrigine (Lamictal) Level 14.4 mcg/mL (2.5-15.0)
== END 2023-12-04 11:58 | disposition home or self-care (01) ==
LOC: LAB 11:57
PROVIDERS: PCP Psychiatry & Neurology Neurology; Visit Provider Psychiatry & Neurology Neurology
DX: G40.419 Other generalized epilepsy and epileptic syndromes, intractable, without status epilepticus (principal)
CPT/HCPCS: 36415; 80175

== ENCOUNTER → 2024-05-05 12:40 | Outpatient (BNVA) | payer OTHER, SELFPAY | PROVIDERS: PCP Psychiatry & Neurology Neurology | DX: M25.511 Pain in right shoulder (principal); M25.521 Pain in right elbow | CPT/HCPCS: 73030; 73080 ==

== ENCOUNTER → 2024-05-23 11:06 | Outpatient (BNVA) | payer OTHER, SELFPAY | PROVIDERS: PCP Family Medicine; Visit Provider Nurse Practitioner | DX: M25.511 Pain in right shoulder (principal) | CPT/HCPCS: 73030 ==